=== PATIENT | male | born 1950 | race Caucasian/White ===

== ENCOUNTER → 2023-06-12 11:32 | Outpatient (REF) | payer MEDICARE, SELFPAY ==
[2023-06-12 13:02] LABS: Protein/creatinine Ratio 1.2; Urine Protein 105 mg/dl
== END ==
LOC: REG 11:32
PROVIDERS: ATTENDING PHYSICIAN Specialist; FAMILY PHYSICIAN Internal Medicine
DX: I10 Essential (primary) hypertension (principal)
CPT/HCPCS: 82570; 84156

== ENCOUNTER → 2023-08-05 10:19 | Outpatient (REF) | payer MEDICARE, SELFPAY ==
[2023-08-05 11:25] LABS: Urine Protein 36 mg/dl (0-12)
[2023-08-05 14:43] LABS: 24 Hour Urine Creatinine 1.766 gm/day (1.0-2.0); 24 Hour Urine Total Volume 1400 ml
== END ==
LOC: REG 10:19
PROVIDERS: ATTENDING PHYSICIAN Specialist; FAMILY PHYSICIAN Internal Medicine
DX: I10 Essential (primary) hypertension (principal)
CPT/HCPCS: 81050; 82570; 84156

== ENCOUNTER → 2023-11-20 10:45 | Outpatient (REF) | payer MEDICARE, SELFPAY ==
[2023-11-20 12:20] LABS: ALT (SGPT) 24 U/L (0-50); AST (SGOT) 28 U/L (17-59); Albumin 4.2 g/dl (3.5-5.0); Alkaline Phosphatase 63 U/L (38-126); Direct Bilirubin 0.2 mg/dl (0.0-0.4); HDL Cholesterol 49 mg/dl; LDL Cholesterol, Calculated 70 mg/dl; Total Bilirubin 1.4 mg/dl (0.2-1.3); Total Cholesterol 133 mg/dl (50-199); Total Protein 6.2 g/dl (6.3-8.2); Triglyceride 72 mg/dl (10-149); Very Low Density Lipoprotein 14 mg/dl (0-30)
== END ==
LOC: REG 10:45
PROVIDERS: ATTENDING PHYSICIAN Internal Medicine
DX: E78.5 Hyperlipidemia, unspecified (principal)
CPT/HCPCS: 36415; 80061; 80076

== ENCOUNTER → 2023-12-07 10:53 | Outpatient (REF) | payer MEDICARE, SELFPAY ==
[2023-12-07 12:13] LABS: Blood Urea Nitrogen 16 mg/dl (9-20); Calcium 9.3 mg/dl (8.4-10.2); Carbon Dioxide 27 mmol/L (22-30); Chloride 106 mmol/L (98-107); Glucose 99 mg/dl (70-99); Potassium 4.5 mmol/L (3.5-5.1); Sodium 141 mmol/L (135-145); Uric Acid 5.6 mg/dl (3.5-8.5); eGFR > 60.00
[2023-12-07 12:17] LABS: Protein/creatinine Ratio 0.5; Urine Protein 63 mg/dl
== END ==
LOC: REG 10:53
PROVIDERS: ATTENDING PHYSICIAN Specialist; FAMILY PHYSICIAN Internal Medicine
DX: I10 Essential (primary) hypertension (principal); R60.9 Edema, unspecified; R80.9 Proteinuria, unspecified; M10.9 Gout, unspecified
CPT/HCPCS: 36415; 80048; 82570; 84156; 84550

== ENCOUNTER → 2024-05-22 09:43 | Outpatient (REF) | payer MEDICARE, SELFPAY ==
[2024-05-22 11:01] LABS: Prolactin 8.6 ng/ml (3.7-17.9)
[2024-05-23 21:31] LABS: % Free Testosterone 1.4 % (1.6-2.9); Free Testosterone 58 pg/mL (47-244); Sex Hormone Binding Globulin 51 nmol/L (19-76); Total Testosterone 408 ng/dL (300-720)
== END ==
LOC: REG 09:43
PROVIDERS: ATTENDING PHYSICIAN Internal Medicine
DX: N52.9 Male erectile dysfunction, unspecified (principal)
CPT/HCPCS: 36415; 84146; 84270; 84402; 84403

== ENCOUNTER → 2024-05-28 11:53 | Outpatient (REF) | payer MEDICARE, SELFPAY ==
[2024-05-28 13:32] LABS: % Basophils 0.7 % (0-2); % Eosinophils 9.7 % (0-6); % Immature Granulocytes 0.3 % (0-0.5); % Lymphocytes 22.5 % (20.5-51.1); % Monocytes 7.2 % (1.7-9.3); % Neutrophils 59.6 % (42.2-75.2); Absolute Basophils 0.1 10^3/uL (0-0.2); Absolute Eosinophils 0.7 10^3/uL (0-0.7); Absolute Lymphocytes 1.5 10^3/uL (1.2-3.4); Absolute Monocytes 0.5 10^3/uL (0.1-0.6); Hematocrit 42.7 % (39.0-52.0); Hemoglobin 14.4 g/dL (13.0-18.0); Mean Corp Hgb Conc. 33.7 g/dL (33.0-37.0); Mean Corpuscular Hgb 33.2 pg (27.0-31.0); Mean Corpuscular Volume 98.4 fL (80.0-94.0); Mean Platelet Volume 9.8 fL (7.4-10.4); Nucleated Red Blood Cells % 0 % (-); Platelet Count 180 10^3/uL (130-400); Red Blood Cell Count 4.34 10^6/uL (4.70-6.10); Red Cell Dist. Width 12.9 % (11.5-14.5); White Blood Cell Count 6.8 10^3/uL (4.8-10.8)
[2024-05-28 13:56] LABS: Protein/creatinine Ratio 2.9; Urine Protein 55 mg/dl
[2024-05-28 14:16] LABS: ALT (SGPT) 32 U/L (0-50); AST (SGOT) 27 U/L (17-59); Albumin 4.5 g/dl (3.5-5.0); Alkaline Phosphatase 69 U/L (38-126); Blood Urea Nitrogen 15 mg/dl (9-20); Calcium 9.2 mg/dl (8.4-10.2); Carbon Dioxide 30 mmol/L (22-30); Chloride 102 mmol/L (98-107); Glucose 93 mg/dl (70-99); HDL Cholesterol 49 mg/dl; LDL Cholesterol, Calculated 69 mg/dl; Potassium 4.8 mmol/L (3.5-5.1); Sodium 138 mmol/L (135-145); Total Bilirubin 2.1 mg/dl (0.2-1.3); Total Cholesterol 128 mg/dl (50-199); Total Protein 6.3 g/dl (6.3-8.2); Triglyceride 53 mg/dl (10-149); Very Low Density Lipoprotein 10 mg/dl (0-30); eGFR > 60.00
[2024-05-28 14:30] LABS: Uric Acid 4.8 mg/dl (3.5-8.5)
[2024-05-28 14:46] LABS: PSA, Total - Screen 1.18 ng/ml (0.0-4.0)
== END ==
LOC: REG 11:53
PROVIDERS: ATTENDING PHYSICIAN Specialist; FAMILY PHYSICIAN Internal Medicine
DX: R80.0 Isolated proteinuria (principal); E78.5 Hyperlipidemia, unspecified; I10 Essential (primary) hypertension; Z12.5 Encounter for screening for malignant neoplasm of prostate; Z00.01 Encounter for general adult medical examination with abnormal findings
CPT/HCPCS: 36415; 80053; 80061; 82570; 84156; 84550; 85025; G0103

== ENCOUNTER → 2024-06-03 11:09 | Outpatient (REF) | payer MEDICARE, SELFPAY ==
[2024-06-03 12:52] LABS: 24 Hour Urine Total Volume 2200 ml
[2024-06-03 17:58] LABS: 24 Hour Urine Creatinine 1.951 gm/day (1.0-2.0); Urine Protein 11 mg/dl (0-12)
== END ==
LOC: REG 11:09
PROVIDERS: ATTENDING PHYSICIAN Specialist; FAMILY PHYSICIAN Internal Medicine
DX: R80.0 Isolated proteinuria (principal); I10 Essential (primary) hypertension; E78.5 Hyperlipidemia, unspecified
CPT/HCPCS: 81050; 82570; 84156

== ENCOUNTER 2024-06-06 06:17 | Day surgery (SDC) | payer MEDICARE, SELFPAY | END 2024-06-06 13:25 | disposition home or self-care (01) | LOC: GI 06:17 | PROVIDERS: ATTENDING PHYSICIAN Specialist | DX: Z12.11 Encounter for screening for malignant neoplasm of colon (principal); K57.30 Diverticulosis of large intestine without perforation or abscess without bleeding; D12.3 Benign neoplasm of transverse colon; K63.5 Polyp of colon; K62.1 Rectal polyp; Z86.0101 Personal history of adenomatous and serrated colon polyps | CPT/HCPCS: 45385; 45380; 88305 ==

== ENCOUNTER → 2024-06-20 09:58 | Outpatient (REF) | payer MEDICARE, SELFPAY | LOC: RAD 09:58 | PROVIDERS: ATTENDING PHYSICIAN Internal Medicine | DX: R09.89 Other specified symptoms and signs involving the circulatory and respiratory systems (principal) | CPT/HCPCS: 93922; 93925 ==

== ENCOUNTER → 2024-11-13 11:08 | Outpatient (REF) | payer MEDICARE, SELFPAY ==
[2024-11-13 12:41] LABS: ALT (SGPT) 22 U/L (0-50); AST (SGOT) 26 U/L (17-59); Albumin 4.6 g/dl (3.5-5.0); Alkaline Phosphatase 57 U/L (38-126); Blood Urea Nitrogen 17 mg/dl (9-20); Calcium 9.3 mg/dl (8.4-10.2); Carbon Dioxide 27 mmol/L (22-30); Chloride 107 mmol/L (98-107); Glucose 96 mg/dl (70-99); HDL Cholesterol 45 mg/dl; LDL Cholesterol, Calculated 82 mg/dl; Potassium 4.8 mmol/L (3.5-5.1); Sodium 140 mmol/L (135-145); Total Protein 6.8 g/dl (6.3-8.2); Very Low Density Lipoprotein 15 mg/dl (0-30); eGFR > 60.00
== END ==
LOC: REG 11:08
PROVIDERS: ATTENDING PHYSICIAN Specialist; FAMILY PHYSICIAN Internal Medicine
DX: E78.5 Hyperlipidemia, unspecified (principal); I10 Essential (primary) hypertension; R80.0 Isolated proteinuria; R60.9 Edema, unspecified; R73.03 Prediabetes
CPT/HCPCS: 36415; 80053; 80061; 82248; 82570; 84156

== ENCOUNTER → 2025-01-15 10:12 | Outpatient (REF) | payer MEDICARE, SELFPAY | LOC: HWRCS 10:12 | PROVIDERS: ATTENDING PHYSICIAN Internal Medicine; FAMILY PHYSICIAN Internal Medicine | DX: I50.32 Chronic diastolic (congestive) heart failure (principal); I34.0 Nonrheumatic mitral (valve) insufficiency; I36.1 Nonrheumatic tricuspid (valve) insufficiency | CPT/HCPCS: 93306 ==

== ENCOUNTER → 2025-02-13 11:05 | Outpatient (REF) | payer MEDICARE, SELFPAY ==
[2025-02-13 12:00] LABS: Blood Urea Nitrogen 14 mg/dl (9-20); Calcium 9.1 mg/dl (8.4-10.2); Carbon Dioxide 27 mmol/L (22-30); Chloride 108 mmol/L (98-107); Glucose 98 mg/dl (70-99); Potassium 4.5 mmol/L (3.5-5.1); Sodium 138 mmol/L (135-145); eGFR > 60.00
== END ==
LOC: REG 11:05
PROVIDERS: ATTENDING PHYSICIAN Internal Medicine; FAMILY PHYSICIAN Internal Medicine
DX: I50.32 Chronic diastolic (congestive) heart failure (principal)
CPT/HCPCS: 36415; 80048